=== PATIENT | male | born 1990 | race African-American/Black ===

== ENCOUNTER 2018-08-16 11:53 | Emergency (ER) | payer SELFPAY ==
[~2018-08-16] VITALS: Ht 165.1 cm; Wt 69.1 kg
[2018-08-16 11:56] VITALS: Ht 165.1 cm; Wt 69.1 kg
[2018-08-16] MEDS ORDERED: AUGMENTIN 875-11 TAB PO (13:21)
[2018-08-16] MEDS ORDERED: PHENERGAN DM SYR5 ML PO (13:21)
[2018-08-16 13:50] VITALS: BP 138/70
== END 2018-08-16 13:50 | disposition home or self-care (01) ==
LOC: D.ER 11:53
DX: J06.9 Acute upper respiratory infection, unspecified (principal); J40 Bronchitis, not specified as acute or chronic; R05 Cough; R09.89 Other specified symptoms and signs involving the circulatory and respiratory systems; R53.1 Weakness; J02.9 Acute pharyngitis, unspecified; F17.200 Nicotine dependence, unspecified, uncomplicated

== ENCOUNTER 2020-06-05 11:04 | Emergency (ER) | payer SELFPAY ==
[~2020-06-05] VITALS: Ht 165.1 cm; Wt 68.2 kg
[~2020-06-05 11:04] MED LIST: AUGMENTIN 875-11 TAB PO; PHENERGAN DM SYR5 ML PO
[2020-06-05 11:12] VITALS: Ht 165.1 cm; Wt 68.2 kg
[2020-06-05] MEDS ORDERED: HYDROCODON-ACE1 EA10 PO (12:10)
[2020-06-05 12:17] LABS: BASOPHILS 0.4 % (0-2); EOSINOPHILS 2.9 % (0-7); HEMATOCRIT 50.3 % (42.0-54.0); HEMOGLOBIN 16.8 g/dL (13.5-17.5); IMMATURE GRANULOCYTES 0.3 % (0-5); LYMPHOCYTES 20.9 % (15-50); MCH 27.1 pg (26.0-34.0); MCHC 33.4 g/dL (31.0-37.0); MCV 81.1 fL (80.0-100.0); MEAN PLATELET VOLUME 10.8 fL (7.4-10.4); MONOCYTES 7.6 % (2-11); NEUTROPHILS 67.9 % (40-80); PLATELET COUNT 192 10x3/uL (130-400); RDW 14.3 % (11.5-14.5); WBC 7.9 10x3/uL (4.8-10.8)
[2020-06-05 12:31] LABS: APTT 29.3 SECONDS (22.8-39.4); INR 0.98 (0.85-1.17)
[2020-06-05 12:32] LABS: CALC OSMOLALITY 277 mosm/kg (275-300); CALCIUM 10.3 mg/dL (8.5-10.1); CARBON DIOXIDE 31.8 mmol/L (21.0-32.0); CHLORIDE - SERUM 102 mmol/L (98-107); GLUCOSE 84 mg/dL (74-106); POTASSIUM - SERUM 5.2 mmol/L (3.5-5.1); SODIUM 141 mmol/L (136-145); UREA NITROGEN 8 mg/dL (7-18); eGFR NON AFRICAN AMERICAN > 90 mL/min (90-120)
[2020-06-05 12:48] LABS: ALBUMIN 4.7 g/dL (3.4-5.0); ALKALINE PHOSPHATASE 110 U/L (30-120); ALT (SGPT) 34 U/L (10-68); BILIRUBIN - TOTAL 0.48 mg/dL (0.2-1.3); CKMB 1.2 U/L (0.0-3.6); CREATINE KINASE 369 UL (21-232); PROTEIN - SERUM 8.3 g/dL (6.4-8.2)
[2020-06-05 12:49] LABS: PRO BNP 7 pg/mL (0-125); TROPONIN-I < 0.017 ng/mL (0.000-0.060)
[2020-06-05] MEDS ORDERED: ZPAK PO (13:58)
[2020-06-05] MEDS ORDERED: MUCINEX DM ER1 EAC1 PO (13:58)
[2020-06-05 14:20] VITALS: BP 120/76
== END 2020-06-05 14:27 | disposition home or self-care (01) ==
LOC: D.ER 11:04
PROVIDERS: Family Medicine
DX: J06.9 Acute upper respiratory infection, unspecified (principal); J02.9 Acute pharyngitis, unspecified; R05 Cough; R68.89 Other general symptoms and signs; Z72.0 Tobacco use